=== PATIENT | male | born 1965 | race Caucasian/White ===

== ENCOUNTER 2017-11-10 00:31 | Emergency (ER) | payer BC ==
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
--- NOTE | 2017-11-10 06:58 | CR ---
Left ankle: Four views of the left ankle were obtained. Comparison: No prior ankle or foot exam. Soft tissue swelling is identified. Fracture is identified within the distal lateral malleolus. Slightly comminuted calcaneal fracture is noted. No additional fracture or other abnormality is appreciated. Impression: 1. Slightly depressed calcaneal fracture. 2. Fracture within the distal lateral malleolus. 3. Soft tissue swelling. Diagnostic code #3
--- NOTE | 2017-11-10 07:29 | CR ---
Left foot: Four views of the left foot were obtained. Comminuted calcaneal fracture again noted. No additional fracture is seen within the left foot. Impression: 1. Left calcaneal fracture is again seen. No additional findings seen within the left foot. Diagnostic code #3
--- NOTE | 2017-11-10 08:14 | CT ---
CT left foot Technique: Multiple axial sections were obtained to the left foot. Reconstructed sagittal and coronal images were reviewed. Findings: Comminuted fracture is identified throughout the calcaneus. Fracture lines involve the subtalar joint. Greatest displacement of fracture fragment is about 7.8 mm. Mildly depressed Bohler's angle is seen with articular margin showing discontinuity by about 1 cm within the mid calcaneus. Fracture line is seen to extend into the calcaneal cuboid joint. Fracture identified within the distal fibula involving the lateral malleolus which is slightly comminuted and involves the posterior margin of the distal malleolus. Diffuse soft tissue swelling is seen. Impression: 1. Comminuted fracture involving the calcaneus. Greatest fracture widening is about 7.8 mm. Bohler's angle is depressed with articular margin within the mid calcaneus showing discontinuity by about 1 cm. Fracture extends into the subtalar joint as well as into the calcaneocuboid joint. 2. Several acute fracture fragments off the posterior and distal lateral malleolus. Diagnostic code #3 Agree with preliminary report issued by [facility] ([facility] preliminary report dictated on 11/10/17, 4:13 AM Central Time) [facility]
== END 2017-11-10 02:24 | disposition home or self-care (01) ==
LOC: JD.ED 00:31
DX: S92.002A Unspecified fracture of left calcaneus, initial encounter for closed fracture (principal); S82.62XA Displaced fracture of lateral malleolus of left fibula, initial encounter for closed fracture; F17.210 Nicotine dependence, cigarettes, uncomplicated; W17.89XA Other fall from one level to another, initial encounter
CPT/HCPCS: 29515; 73610-26-LT; 73610-LT; 73630-26-LT; 73630-LT; 73700-26-LT; 73700-LT; 99284-25

== ENCOUNTER 2020-05-26 12:46 | Emergency (ER) | payer BC ==
[2020-05-26] MEDS ORDERED: Lidocaine 1% 10 ML MDV INJECT ONE (13:06)
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
== END 2020-05-26 14:00 | disposition home or self-care (01) ==
LOC: JD.ED 12:46
DX: S01.81XA Laceration without foreign body of other part of head, initial encounter (principal); Z72.0 Tobacco use; W22.8XXA Striking against or struck by other objects, initial encounter
CPT/HCPCS: 12013; 99282; 99282-25